=== PATIENT | female | born 1970 | race American Indian/Alaskan Native ===

== ENCOUNTER 2017-06-16 09:47 | Emergency (ER) | payer SELFPAY ==
[2017-06-16 10:45] LABS: Hematocrit 36.2 % (30.3-42.9); Hemoglobin 12.1 gm/dl (10.1-14.3); Mean Corpuscular HGB Conc 34 % (30-34); Mean Corpuscular Hemoglobin 29 pg (28-32); Mean Corpuscular Volume 87 fl (79-97); Platelet Count 202 K/mm3 (140-440); Red Blood Count 4.18 M/mm3 (3.65-5.03); Red Cell Distribution Width 14.6 % (13.2-15.2)
[2017-06-16 10:47] LABS: HCG Qualitative,Urine Negative (Negative)
[2017-06-16 10:50] LABS: Bilirubin,Urine NEG (Negative); Blood,Urine NEG (Negative); Color,Urine Yellow (Yellow); Protein,Urine <15 mg/dL mg/dL (Negative); Urobilinogen,Urine < 2.0 mg/dL (<2.0)
[2017-06-16 11:02] LABS: BUN/Creatinine Ratio 10; Blood Urea Nitrogen 5 mg/dL (7-17); Calcium 8.6 mg/dL (8.4-10.2); Hemolysis Index 12
[2017-06-16] MEDS ORDERED: ZOFRAN ODT PO ONE (11:46)
[2017-06-16] MEDS ORDERED: NORCO 5/325 PO ONE (11:46)
[2017-06-16] MEDS ORDERED: MOTRIN PO ONE (11:47)
--- NOTE | 2017-06-16 11:48 | Emergency Department Report ---
ED Back Pain/Injury HPI - General Chief Complaint: Back Pain/Injury Stated Complaint: BACK PAIN Time Seen by Provider: 06/16/17 10:52 Source: patient Limitations: No Limitations - History of Present Illness Initial Comments: 46-year-old female past medical history L-spine fusion surgery 5 years ago, smoker, hypertension hypothyroidism presents with complaint of 5 days of persistent lower back pain consistent with previous episodes of lower back pain. Denies chest pain fever chills nausea. Does endorse some increased urinary frequency. Denies any recent falls or trauma to lower back. Patient also states that she has been out of her hypertension medicine for 6 months. Patient is ambulatory without assistance. Accompanied by at bedside. MD Complaint: back pain Severity: moderate - Related Data Previous Rx's Medication Instructions Recorded Last Taken Type Acetaminophen/Codeine [Tylenol 1 tab PO Q6H PRN #12 tab 06/16/17 Unknown Rx /Codeine # 3 tab] Ibuprofen [Motrin] 600 mg PO Q8H PRN #30 tablet 06/16/17 Unknown Rx amLODIPine [Norvasc] 5 mg PO DAILY #30 tab 06/16/17 Unknown Rx Allergies Allergy/AdvReac Type Severity Reaction Status Date / Time No Known Allergies Allergy Unverified 06/16/17 09:57 ED Review of Systems ROS: Stated complaint: BACK PAIN Other details as noted in HPI Constitutional: denies: chills, fever Eyes: denies: eye pain, eye discharge, vision change ENT: denies: ear pain, throat pain Respiratory: denies: cough, shortness of breath, wheezing Cardiovascular: denies: chest pain, palpitations Endocrine: no symptoms reported Gastrointestinal: denies: abdominal pain, nausea, diarrhea Genitourinary: denies: urgency, dysuria, discharge Musculoskeletal: back pain. denies: joint swelling, arthralgia Skin: denies: rash, lesions Neurological: denies: headache, weakness, paresthesias Psychiatric: denies: anxiety, depression Hematological/Lymphatic: denies: easy bleeding, easy bruising ED Past Medical Hx - Past Medical History Previous Medical History?: Yes Hx Hypertension: Yes Additional medical history: Hypothryroidism - Surgical History Past Surgical History?: Yes Additional Surgical History: Back - Social History Smoking Status: Current Every Day Smoker Substance Use Type: None - Medications Home Medications: Home Medications Medication Instructions Recorded Confirmed Last Taken Type Acetaminophen/Codeine [Tylenol 1 tab PO Q6H PRN #12 tab 06/16/17 Unknown Rx /Codeine # 3 tab] Ibuprofen [Motrin] 600 mg PO Q8H PRN #30 tablet 06/16/17 Unknown Rx amLODIPine [Norvasc] 5 mg PO DAILY #30 tab 06/16/17 Unknown Rx ED Physical Exam - General Limitations: No Limitations General appearance: alert, in no apparent distress - Head Head exam: Present: atraumatic, normocephalic - Eye Eye exam: Present: normal appearance, PERRL, EOMI - ENT ENT exam: Present: mucous membranes moist - Neck Neck exam: Present: normal inspection - Respiratory Respiratory exam: Present: normal lung sounds bilaterally. Absent: respiratory distress - Cardiovascular Cardiovascular Exam: Present: regular rate, normal rhythm. Absent: systolic murmur, diastolic murmur, rubs, gallop - GI/Abdominal GI/Abdominal exam: Present: soft, normal bowel sounds - Extremities Exam Extremities exam: Present: normal inspection - Back Exam Back exam: Present: normal inspection - Neurological Exam Neurological exam: Present: alert, oriented X3, CN II-XII intact, normal gait - Expanded Neurological Exam Expanded Patient oriented to: Present: person, place, time Cranial nerves: EOM's Intact: Normal, Facial Sensation: Normal Cerebellar function: Finger to Nose: Normal, Romberg: Normal Upper motor neuron: Asim Neglect: Normal Sensory exam: Upper Extremity Light Touch: Normal, Lower Extremity Light Touch: Normal Motor strength exam: RUE: 5, LUE: 5, RLE: 5, LLE: 5 Best Eye Response (Jania): (4) open spontaneously Best Motor Response (Jania): (6) obeys commands Best Verbal Response (Jania): (5) oriented [place] Total: 15 - Psychiatric Psychiatric exam: Present: normal affect, normal mood - Skin Skin exam: Present: warm, dry, intact, normal color. Absent: rash ED Course Vital Signs 06/16/17 06/16/17 06/16/17 09:53 11:52 11:53 Temperature 97.8 F Pulse Rate 89 Respiratory 16 16 16 Rate Blood Pressure 144/110 O2 Sat by Pulse 100 Oximetry ED Medical Decision Making - Lab Data Result diagrams: 06/16/17 10:35 06/16/17 10:35 - Medical Decision Making A/P: Back pain, asymptomatic hypertension, lumbar spondylolisthesis a/p: lower/ lower back pain, lumbalgia 1- will provide symptomatic relief with trial of NSAIDS, pt states she has not tried NSAIDS, only tylenol for pain 2- will refer to PMD as pt does not have one and to ortho for f/u and outpt imaging, none needed at this time since pain is atraumatic, no neurovascular deficits on PE, no saddle paraesthesias, no bladder overflow, no bowel incontience. Pt denies any fever, chill, dysruia or IV drug use. Pain likely from chronic degenerative spinal disease. 1- 2- 3- 4- Critical care attestation.: If time is entered above; I have spent that time in minutes in the direct care of this critically ill patient, excluding procedure time. ED Disposition Clinical Impression: Lower back pain Qualifiers: Chronicity: acute Back pain laterality: bilateral Sciatica presence: without sciatica Qualified Code(s): M54.5 - Low back pain Disposition: TO HOME OR SELFCARE Is pt being admited?: No Does the pt Need Aspirin: No Condition: Stable Instructions: Low Sodium Diet (ED), Hypertension (ED), Amlodipine (By mouth) Prescriptions: Acetaminophen/Codeine [Tylenol /Codeine # 3 tab] 1 tab PO Q6H PRN #12 tab PRN Reason: Pain, Moderate (4-6) amLODIPine [Norvasc] 5 mg PO DAILY #30 tab Ibuprofen [Motrin] 600 mg PO Q8H PRN #30 tablet PRN Reason: Pain Referrals: PRIMARY CARE,MD [Primary Care Provider] - 3-5 Days [facility] [Outside] - 3-5 Days [facility] [Outside] - 3-5 Days Forms: Work/School Release Form(ED) Time of Disposition: 14:26
--- NOTE | 2017-06-16 14:31 | XRay Report ---
LUMBOSACRAL SPINE, 3 VIEWS: History: Lower back pain Findings: There is normal bone mineralization. No evidence for compression deformity or subluxation. There is mild disc space narrowing and marginal spurring at L4-5 and L5-1. Moderate to severe hypertrophic facet arthropathy is also identified at L4-5 and L5-S1. There is partial sacralization of L5. The sacrum and SI joints are within normal limits. Unilateral left fallopian tube clip is noted. Impression: Lumbar spondylosis as described.
[2017-06-16 14:43] VITALS: BP 127/89
== END 2017-06-16 14:43 | disposition home or self-care (01) ==
LOC: ED 09:47
DX: M54.5 Low back pain (principal); I10 Essential (primary) hypertension; F17.200 Nicotine dependence, unspecified, uncomplicated; E03.9 Hypothyroidism, unspecified
CPT/HCPCS: 36415; 72100; 80048; 81001; 81025; 82550; 84484; 85027; 93005; 93010; 99284; Q0162